=== PATIENT | male | born 1985 | race Caucasian/White ===

== ENCOUNTER 2018-10-10 10:43 | Emergency (ER) | payer SELFPAY ==
[~2018-10-10] VITALS: Ht 185.4 cm; Wt 75.0 kg
--- NOTE | 2018-10-10 11:20 | REP ---
Clinical: Trauma . Comparison: None . Findings: The ventricles, sulci, and cisterns are normal in position and appearance. Quezada-white differentiation is maintained. No acute intracranial hemorrhage, mass/mass effect, pathology or trauma/injury. No evidence for acute infarction. No extra-axial fluid collection. Calvarium is intact. Paranasal sinuses and mastoid air cells are clear. Impression: Normal noncontrast head CT. No evidence for acute intracranial pathology or trauma/injury. Electronically Signed by Eusebio Bernal MD 10/10/2018 11:11 A
--- NOTE | 2018-10-10 11:21 | REP ---
Clinical: Trauma . Technique: Axial noncontrast images from the skull base to the thoracic inlet with coronal and sagittal re-formations Findings: Normal alignment is maintained. Cervical vertebral bodies including transverse processes and spinous processes are intact and there is no evidence for acute fracture / compression injury or subluxation. Spinal canal is patent. Posterior elements are intact. Paravertebral soft tissues are normal. Mild focal degenerative changes at C4-5 with bridging osteophyte and minimal endplate sclerosis/narrowing. Impression: Minimal focal degenerative changes at C4-5. No evidence for acute pathology or trauma/injury. Electronically Signed by Eusebio Bernal MD 10/10/2018 11:12 A
--- NOTE | 2018-10-10 11:22 | REP ---
Clinical: Trauma. Technique: Axial noncontrast images through the facial bones to include the mandible with coronal and sagittal re-formations. Findings: There is deviation of the nose to the right side which may represent subtle acute versus old nasal bone fracture. The remainder of the osseous structures are intact and there is no evidence for fracture or dislocation. The sinuses and mastoid air cells are all well aerated and clear without fluid level to suggest occult trauma. The bilateral orbits including the globes and intraconal contents appear symmetric and normal. The surrounding soft tissues are grossly unremarkable. Impression: Cannot exclude acute versus old nasal bone fracture. Otherwise normal maxillofacial CT. Electronically Signed by Eusebio Bernal MD 10/10/2018 11:14 A
[2018-10-10 13:25] VITALS: BP 129/85
== END 2018-10-10 13:30 | disposition home or self-care (01) ==
LOC: M ED 10:43
DX: T14.8XXA Other injury of unspecified body region, initial encounter (principal); R93.7 Abnormal findings on diagnostic imaging of other parts of musculoskeletal system; Y35.893A Legal intervention involving other specified means, suspect injured, initial encounter; Y92.148 Other place in prison as the place of occurrence of the external cause; F17.200 Nicotine dependence, unspecified, uncomplicated